=== PATIENT | male | born 1980 | race Caucasian/White ===

== ENCOUNTER 2020-08-26 13:42 | Emergency (ER) | payer OTHER ==
[~2020-08-26] VITALS: Ht 177.8 cm; Wt 78.0 kg
[2020-08-26 14:03] VITALS: BP 123/67
[2020-08-26] MEDS ORDERED: CEPH250T PO (15:09)
== END 2020-08-26 15:32 | disposition home or self-care (01) ==
LOC: ER 13:44
DX: S91.132A Puncture wound without foreign body of left great toe without damage to nail, initial encounter (principal); Z79.2 Long term (current) use of antibiotics; X58.XXXA Exposure to other specified factors, initial encounter; Y93.89 Activity, other specified; Y92.89 Other specified places as the place of occurrence of the external cause; Y99.8 Other external cause status
CPT/HCPCS: 73660; 99283

== ENCOUNTER 2025-07-17 21:17 | Emergency (ER) | payer MEDICAID, OTHER ==
[~2025-07-17] VITALS: Ht 175.3 cm; Wt 70.1 kg
[2025-07-17 21:22] VITALS: TEMP 98.5
--- NOTE | 2025-07-17 21:23 | ELECTROCARDIOGRAPH REPORT ---
[facility] [place] Test Date: 2025-07-17 Test Time: 21:21:57 Pat Name: GYPSY MCDONALD Department: EMERGENCY ROOM Room: Gender: M [employer]: : [id number] Requested By: AMAN WESTBROOK Order Number: [id number] Reading MD: Dr. Lacho Mascorro Measurements Intervals [place] Rate: 61 P: 81 MO: 174 QRS: 74 QRSD: 79 T: 66 QT: 388 QTc: 391 Interpretive Statements Sinus rhythm ST elev, probable normal early repol pattern Electronically Signed On 07-18-2025 9:04:[address] Lacho Mascorro Please click the below link to view image of tracing.
--- NOTE | 2025-07-17 21:46 | RADIOLOGY REPORT ---
CHEST RADIOGRAPH INDICATION: CP TECHNIQUE: Single frontal view of the chest was obtained COMPARISON: None FINDINGS: Lines and Tubes: None. Lungs: Clear. Pleura: No pleural effusion or pneumothorax. Cardiomediastinal contours: Unremarkable IMPRESSION: No abnormality demonstrated.
[2025-07-17 22:10] LABS: MEAN PLATELET VOLUME 9.1 FL (7.4-10.4); RED CELL DISTRIBUTION WIDTH 13.3 % (11.5-14.5)
[2025-07-17 22:28] LABS: CREATININE 0.89 MG/DL (0.60-1.10); PRO BRAIN NATRIURETIC PEPTIDE < 30 PG/ML (0-125); TOTAL CARBON DIOXIDE 31.5 MMOL/L (24-32); eCRCL 105 ML/MIN; eGFR > 90 ML/MIN
[2025-07-17 23:28] VITALS: BP 133/48; PULSE 58; O2SAT 98
[2025-07-18 01:25] VITALS: RESP 12
--- NOTE | 2025-07-18 01:31 | Physician Documentation ---
History of Present Illness ~ Chief Complaint: Shortness of Breath Stated Complaint: SOB Time Seen by MD: 01:19 Primary Medical Doctor: none HPI Patient presents to the emergency room for evaluation of cough and chest pain. Patient has been suffering from the cough for the past four or five days. No fevers. He states he gets into coughing fits in his scares him that has that has associated with some chest pain. He states similar episode happened last year and that has seen that has told that everything looked find and symptoms resolved spontaneously. Medication Reconciliation Allergies: Coded Allergies: No Known Allergies (Unverified , 08/26/20) Past Medical History Past Medical History: No Pertinent History Past Surgical History: no surgical history Alcohol Use: None Drug Use: none Review of Systems ROS All review of systems negative except as per HPI Physical Exam Vital Signs: Temperature: 98.5, Heart Rate: 58, Respiratory Rate: 16, BP: 133/48, Pulse Oximetry: 98, Weight: 70.100 Oxygen Flow Rate: 0 Physical Exam General: Patient is awake, alert, oriented x4 in no acute distress Head: Normocephalic and atraumatic. Eyes: Conjunctival normal. EOMI. PERRL. ENT: Mucous membranes moist. Neck: Supple, trachea is midline. Chest: Clear to auscultation bilaterally without rales, rhonchi, or wheezes. There is no accessory muscle use or retractions. Cardiac: RRR without murmurs, gallops, or rubs. Extremities: Normal strength. Normal range of motion. No deformities or edema. No calf tenderness to palpation Progress Results/Orders Results/Orders Orders - TROY LEIVA MD Chest,Single View (07/17/25 21:36) Monitor (07/17/25 21:21) Saline Lock (07/17/25 21:21) Oxygen (07/17/25 21:21) Hs Troponin I W Calculations (07/18/25 00:21) Completed Orders - TROY LEIVA MD Chest,Single View (07/17/25 21:36) Cbc/Diff (07/17/25 21:21) BMP (07/17/25 21:21) PBNP (07/17/25 21:21) Electrocardiogram (07/17/25 21:21) Hs Troponin I W Calculations (07/17/25 21:21) Hs Troponin I W Calculations (07/17/25 23:21) Vital Signs 07/17/25 07/17/25 21:22 23:28 Temp 98.5 Pulse 62 58 Resp 18 16 B/P (MAP) 128/45 133/48 (76) Pulse Ox 98 98 O2 Flow Rate 0 0 Laboratory Tests Test 07/17/25 21:40 07/17/25 23:23 White Blood Count 10.9 Red Blood Count 4.87 Hemoglobin 14.6 Hematocrit 43.0 Mean Corpuscular Volume 88.5 Mean Corpuscular Hemoglobin 30.0 Mean Corpuscular Hemoglobin Concent 34.0 Red Cell Distribution Width 13.3 Platelet Count 283 Mean Platelet Volume 9.1 Neutrophils (%) (Auto) 61.2 Lymphocytes (%) (Auto) 24.8 Monocytes (%) (Auto) 8.6 Eosinophils (%) (Auto) 4.4 Basophils (%) (Auto) 1.0 Neutrophils # (Auto) 6.7 Lymphocytes # (Auto) 2.7 Monocytes # (Auto) 0.9 Eosinophils # (Auto) 0.5 Basophils # (Auto) 0.1 CBC Comment Sodium Level 141 Potassium Level 4.2 Chloride Level 104 Carbon Dioxide Level 31.5 Anion Gap 6 L Blood Urea Nitrogen 18 Creatinine 0.89 Estimated GFR/1.73 m2 > 90 BUN/Creatinine Ratio 20.2 H Glucose Level 102 Calcium Level 9.0 Troponin I High Sensitivity 72 74 Pro-B-Type Natriuretic Peptide < 30 Albumin 3.9 Chemistry Comments Troponin I High Sens Percent Delta 2 Troponin I Hi Sens Absolute Change 2 EKG/XRAY/CT/US/VASC/MRI EKG : Additional Comment EKG interpreted by myself shows time of 08/07/2020, rate 61, sinus rhythm, normal axis, no ST changes Chest X-Ray : Additional Comments Exam: CHEST,SINGLE VIEW CHEST RADIOGRAPH INDICATION: CP TECHNIQUE: Single frontal view of the chest was obtained COMPARISON: None FINDINGS: Lines and Tubes: None. Lungs: Clear. Pleura: No pleural effusion or pneumothorax. Cardiomediastinal contours: Unremarkable IMPRESSION: No abnormality demonstrated. Medical Decision Making Additional information obtaine: N/A Findings Patient presents to the emergency room with cough and chest pain that has per HPI. Differentials include but are not limited to pulmonary embolism, pneumothorax, musculoskeletal pain, pulmonary embolism, viral syndrome, pneumonia therefore emergent labs and imaging ordered. Chest x-ray is reassuring as are labs. Patient is considered low cardiovascular risk. He is saturating 100% on room air with no tachycardia no calf pain he had not feel he requires investigation into pulmonary embolism. Heart Score: 2 Differential Dx:Considerations: Include: anxiety, asthma, bronchitis, cardiogenic shock, CHF, COPD, dysrhythmia, hypertension, accelerated, hypertension, essential, hypertension, malignant, hyperventilation, hyponatremia, myocardial infarction, panic attack, pneumonia, pneumonitis, p neumothorax, PSVT, pulmonary embolism, respiratory distress, respiratory failure, sinusitis, upper resp. infection, other Departure Disposition: HOME / SELF CARE / HOMELESS Impression: Primary Impression: Acute upper respiratory infection Condition: Stable Discharge Instructions: Upper Respiratory Infection, Adult Referrals: NO PRIMARY CARE PROVIDER (PCP) Prescriptions Albuterol Sulfate (Ventolin Hfa) 90 Mcg Hfa.aer.ad 2 PUFFS IH 5XD, #1 EACH Prov: TROY LEIVA MD 07/18/25 Benzonatate* (Benzonatate*) 100 Mg Capsule 1-2 CAP PO Q6H for cough, #30 CAP Prov: TROY LEIVA MD 07/18/25 Signature Scribe Signature: No scribe Attestation: The note accurately reflects work and decisions made by me.Troy Leiva MD 07/18/25 01:32 TROY LEIVA MD Jul 18, 2025 01:31
[2025-07-18] MEDS ORDERED: BENZ-38 PO (01:32)
[2025-07-18] MEDS ORDERED: ALBU18HF2 IH (01:32)
== END 2025-07-18 01:50 | disposition home or self-care (01) ==
LOC: ER 21:17
DX: J06.9 Acute upper respiratory infection, unspecified (principal); R06.2 Wheezing
CPT/HCPCS: 36415; 71045; 80048; 83880; 84484; 85025; 93005; 99285